=== PATIENT | female | born 1950 | race Caucasian/White ===

== ENCOUNTER → 2017-03-07 | Outpatient (CLI) | payer BC ==
[~2017-03-07] MED LIST: ASPIRIN 81M81 MG/TA2 PO; CALCIUM 600MG+D1 TAB PO; FISH OIL 1000MG1 CAP PO; MULTIPLE VITAMI1 TA5 PO; PROZAC 20MG20 MG PO; VITAMIN D31000 IU PO
== END ==
LOC: MC.RAD 07:00
DX: Z12.31 Encounter for screening mammogram for malignant neoplasm of breast (principal)

== ENCOUNTER → 2018-06-30 | Outpatient (CLI) | payer BC | LOC: MC.RAD 06-20 07:40 | DX: Z12.31 Encounter for screening mammogram for malignant neoplasm of breast (principal) ==

== ENCOUNTER → 2019-07-09 | Outpatient (CLI) | payer MEDICARE, BC | LOC: MC.RAD 07-08 15:45 | DX: Z12.31 Encounter for screening mammogram for malignant neoplasm of breast (principal) ==

== ENCOUNTER → 2020-07-12 | Outpatient (CLI) | payer MEDICARE, BC | END | disposition still patient (30) | LOC: MC.RAD 15:00 | DX: Z12.31 Encounter for screening mammogram for malignant neoplasm of breast (principal) ==

== ENCOUNTER 2020-10-18 19:22 | Emergency (ER) | payer MEDICARE, BC ==
[~2020-10-18] VITALS: Ht 154.9 cm; Wt 77.3 kg
[2020-10-18 21:01] VITALS: BP 164/68; PULSE 70; TEMP 98.7
== END 2020-10-18 20:58 | disposition home or self-care (01) ==
LOC: COL.ER 19:22
DX: R04.0 Epistaxis (principal)

== ENCOUNTER → 2022-04-11 | Outpatient (CLI) | payer MEDICARE, BC | LOC: MC.RAD 14:29 | DX: Z12.31 Encounter for screening mammogram for malignant neoplasm of breast (principal) ==